=== PATIENT | female | born 1945 | race Two or more races ===

== ENCOUNTER 2021-04-05 20:33 | Inpatient (IN) | payer MEDICAID, OTHER ==
[~2021-04-05] VITALS: Ht 157.5 cm; Wt 64.5 kg
[2021-04-05 21:55] LABS: Basophils # (auto) 0 10 ^3/uL (0-0.2); Basophils % (auto) 0.3 % (0.0-2.0); Eosinophils # (auto) 0 10 ^3/uL (0-0.8); Hematocrit 40.5 % (36.0-46.0); Hemoglobin 13.2 g/dL (12.2-16.2); Lymphocytes # (auto) 1.8 10 ^3/uL (0.4-5.4); Lymphocytes % (auto) 12.6 % (10.0-50.0); Mean Corpuscular Hemoglobin 32.6 pg (28.0-32.0); Mean Corpuscular Hgb Conc. 32.6 g/dL (32.0-36.0); Monocytes # (auto) 1.3 10 ^3/uL (0-1.3); Monocytes % (auto) 9.6 % (0.0-12.0); Neutrophils # (auto) 10.8 10 ^3/uL (1.6-8.6); Neutrophils % (auto) 77.5 % (37.0-80.0); Red Blood Cells 4.05 10^6/uL (4.0-5.20); Red Cell Distribution Width 15.3 % (11.8-14.3)
[2021-04-05 21:56] LABS: Magnesium 3.1 mg/dL (1.6-2.6)
[2021-04-05 22:00] LABS: BUN/Creatinine Ratio 8.2; Bilirubin, Total 0.5 mg/dL (0.2-1.0); Total Protein 8.4 g/dL (6.4-8.2)
[2021-04-05 22:03] LABS: INR 1.05 (0.9-1.15); Partial Thromboplastin Time 31.9 sec (23.6-33.0)
[2021-04-05 22:04] LABS: Potassium 5.6 mmol/L (3.5-5.1)
[2021-04-05] MEDS ORDERED: CALCIUM GLUC 1,000mg/50ml-NS 50 ML IV ONE (22:15)
[2021-04-05] MEDS ORDERED: SODIUM BICARBONATE 8.4% INJ 50ML SYRINGE IV ONE (22:15)
[2021-04-05] MEDS ORDERED: InsuLIN REG 1unit/0.01ml Soln (100units/ml) IV ONE (22:15)
[2021-04-05] MEDS ORDERED: DEXTROSE (50%) 50ML SYRG IV ONE (22:15)
[2021-04-05] MEDS ORDERED: MORPHINE SULFATE 4 MG/ML SYR/VIAL IV PRN (22:30)
[2021-04-05] MEDS ORDERED: DOCUSATE SOD 100 MG CAP PO PRN (22:30)
[2021-04-05] MEDS ORDERED: hydrALAZINE HCL 20 MG/ML VL IV PRN (22:30)
[2021-04-05] MEDS ORDERED: ONDANSETRON HCL 4 MG/2 ML VIAL IV PRN (22:30)
[2021-04-05] MEDS ORDERED: DEXTROSE (50%) 50ML SYRG IV PRN (22:30)
[2021-04-05] MEDS ORDERED: ACETAMINOPHEN 325 MG TAB PO PRN (22:30)
[2021-04-05] MEDS ORDERED: NITROGLYCERIN 0.4 MG SL TAB SL PRN (23:00)
[2021-04-05] MEDS ORDERED: MORPHINE SULFATE INJECTION 2 MG/ML SYRG IV PRN (23:00)
[2021-04-06] MEDS ORDERED: SODIUM CHLOR 0.9% PF (SALINE LOCK) 10ML VIAL/SYR IV SCH ×2 (06:00→22:00)
[2021-04-06] MEDS: ACCU-CHEK COMFORT CURVE STRIP VI SCH (06:47)
[2021-04-06] MEDS: InsuLIN REG 1unit/0.01ml Soln (100units/ml) SC SCH ×2 (06:56→22:16)
[2021-04-06 07:10] LABS: Albumin 2.5 g/dL (3.4-5.0); Calcium 8.7 mg/dL (8.5-10.1); Magnesium 3.3 mg/dL (1.6-2.6); Potassium 5.5 mmol/L (3.5-5.1)
[2021-04-06 07:14] LABS: BUN/Creatinine Ratio 8.1; Bilirubin, Total 0.6 mg/dL (0.2-1.0); Total Protein 7.3 g/dL (6.4-8.2)
[2021-04-06 07:20] LABS: Basophils # (auto) 0 10 ^3/uL (0-0.2); Basophils % (auto) 0.3 % (0.0-2.0); Eosinophils # (auto) 0 10 ^3/uL (0-0.8); Eosinophils % (auto) 0.1 % (0.0-7.0); Hematocrit 36.3 % (36.0-46.0); Hemoglobin 12.3 g/dL (12.2-16.2); Lymphocytes # (auto) 2.9 10 ^3/uL (0.4-5.4); Lymphocytes % (auto) 19.8 % (10.0-50.0); Mean Corpuscular Hemoglobin 33.9 pg (28.0-32.0); Mean Corpuscular Hgb Conc. 33.8 g/dL (32.0-36.0); Mean Corpuscular Volume 100.2 fL (80.0-100.0); Monocytes # (auto) 1.6 10 ^3/uL (0-1.3); Monocytes % (auto) 11.1 % (0.0-12.0); Neutrophils % (auto) 68.7 % (37.0-80.0); Nucleated Red Blood Cells % 0.1 %; Red Blood Cells 3.62 10^6/uL (4.0-5.20); Red Cell Distribution Width 15.2 % (11.8-14.3); White Blood Cell 14.6 10^3/uL (4.4-10.8)
[2021-04-06] MEDS ORDERED: DEXTROSE (50%) 50ML SYRG IV ONE (08:00)
[2021-04-06] MEDS ORDERED: CALCIUM GLUC 1,000mg/50ml-NS 50 ML IV ONE (08:00)
[2021-04-06] MEDS ORDERED: InsuLIN REG 1unit/0.01ml Soln (100units/ml) IV ONE (08:00)
[2021-04-06] MEDS ORDERED: SODIUM ZIRCONIUM CYCL 10 GM PAK PO ONE (08:00)
[2021-04-06] MEDS ORDERED: SODIUM BICARBONATE 8.4% INJ 50ML SYRINGE IV ONE (09:00)
[2021-04-06] MEDS: SEVELAMER 800 MG TAB PO SCH ×2 (09:00→12:00)
[2021-04-06] MEDS: cefTRIAXone 1GM/50ML D5W 50 ML IV SCH (09:20)
[2021-04-06] MEDS ORDERED: HEPARIN SODIUM (PORCINE) 5000 UNITS/ML 1ML VIAL IV ONE (10:00)
[2021-04-06] MEDS: ASPirin 81 mg TAB PO SCH (10:00)
[2021-04-06] MEDS ORDERED: FAMOTIDINE (10MG/ML) 2ML VL IV SCH (10:00)
[2021-04-06] MEDS ORDERED: NITROGLYCERIN 50MG/250ML 250 ML IV SCH (10:00)
[2021-04-06 10:26] LABS: Basophils # (auto) 0.1 10 ^3/uL (0-0.2); Basophils % (auto) 0.5 % (0.0-2.0); Eosinophils # (auto) 0.1 10 ^3/uL (0-0.8); Eosinophils % (auto) 0.4 % (0.0-7.0); Hematocrit 38.8 % (36.0-46.0); Hemoglobin 12.8 g/dL (12.2-16.2); Lymphocytes # (auto) 2.9 10 ^3/uL (0.4-5.4); Lymphocytes % (auto) 17.9 % (10.0-50.0); Mean Corpuscular Hemoglobin 33.3 pg (28.0-32.0); Mean Corpuscular Hgb Conc. 33.1 g/dL (32.0-36.0); Mean Corpuscular Volume 100.7 fL (80.0-100.0); Monocytes # (auto) 1.5 10 ^3/uL (0-1.3); Monocytes % (auto) 9.4 % (0.0-12.0); Neutrophils # (auto) 11.6 10 ^3/uL (1.6-8.6); Neutrophils % (auto) 71.8 % (37.0-80.0); Nucleated Red Blood Cells % 0.4 %; Red Blood Cells 3.85 10^6/uL (4.0-5.20); Red Cell Distribution Width 15.3 % (11.8-14.3); White Blood Cell 16.1 10^3/uL (4.4-10.8)
[2021-04-06] MEDS ORDERED: methylPREDNISolone SOD SUCC 40 MG/ML VL IV ONE (10:30)
[2021-04-06] MEDS ORDERED: FAMOTIDINE (10MG/ML) 2ML VL IV ONE ×3 (10:30→22:00)
[2021-04-06] MEDS ORDERED: diphenhdrAMINE HCL 25 MG CAP PO ONE ×2 (10:30→22:00)
[2021-04-06] MEDS: ZINC SULFATE 220mg CAP or TAB PO SCH (10:57)
[2021-04-06] MEDS: B-COMPLEX W/ C & FOLIC ACID(NEPHROVITE TAB) PO SCH (10:57)
[2021-04-06] MEDS: ASCORBIC ACID 500 MG TAB PO SCH ×2 (10:59→22:21)
[2021-04-06] MEDS: MULTIPLE VITAMIN TAB PO SCH (11:02)
[2021-04-06] MEDS: HEPARIN DRIP/D5W 100UNITS/ML 250 ML IV SCH (11:45)
[2021-04-06] MEDS ORDERED: LIDOCAINE 2%HCL (LOCAL ANESTH.) INJ 20ML MDV ONE (12:52)
[2021-04-06] MEDS ORDERED: IODIXANOL 320MG/ML 100ML BTL IV ONE (12:52)
[2021-04-06] MEDS ORDERED: ANGIOMAX 250 MG VIAL IV ONE (12:56)
[2021-04-06] MEDS ORDERED: HEPARIN SODIUM (PORCINE) 5000 UNITS/ML 1ML VIAL ONE (12:56)
[2021-04-06] MEDS ORDERED: fentaNYL CITRATE 100 MCG/2 ML VL ONE (12:57)
[2021-04-06] MEDS ORDERED: VERAPAMIL 2.5MG/ML INJ 2ML VIAL IV ONE (12:57)
[2021-04-06] MEDS ORDERED: MIDAZOLAM HCL 2MG/2ML 2ml VIAL (1mg/ml) ONE (12:57)
[2021-04-06] MEDS ORDERED: SODIUM CHL 0.9% 0 ML ONE (12:57)
[2021-04-06] MEDS ORDERED: diphenhdrAMINE HCL 50 MG/1 ML VL ONE (13:12)
[2021-04-06] MEDS ORDERED: methylPREDNISolone SOD SUCC 125 MG/2 ML VL ONE (13:12)
[2021-04-06] MEDS ORDERED: AML5T PO (13:36)
[2021-04-06] MEDS ORDERED: ASPI1TAB20 PO (13:38)
[2021-04-06] MEDS ORDERED: MET50T PO (13:40)
[2021-04-06] MEDS ORDERED: CINA30TA2 PO (13:41)
[2021-04-06] MEDS ORDERED: LORA-622 PO (13:41)
[2021-04-06] MEDS ORDERED: GLIP5TAB12 PO (13:41)
[2021-04-06] MEDS ORDERED: SEVE800T10 PO (13:43)
[2021-04-06] MEDS ORDERED: INSU1INJ19 SC (13:43)
[2021-04-06 19:48] LABS: INR 1.11 (0.9-1.15); Partial Thromboplastin Time 56.4 sec (23.6-33.0)
[2021-04-06] MEDS: SODIUM CHLOR 0.9% PF (SALINE LOCK) 10ML VIAL/SYR IV SCH (22:23)
[2021-04-06 23:13] VITALS: BP 138/68
[2021-04-07 02:27] LABS: INR 1.17 (0.9-1.15); Partial Thromboplastin Time 56.7 sec (23.6-33.0)
[2021-04-07 05:30] VITALS: BP 145/66
[2021-04-07] MEDS: SODIUM CHLOR 0.9% PF (SALINE LOCK) 10ML VIAL/SYR IV SCH ×3 (05:35→22:10)
[2021-04-07 05:49] LABS: Basophils # (auto) 0 10 ^3/uL (0-0.2); Basophils % (auto) 0.1 % (0.0-2.0); Eosinophils # (auto) 0 10 ^3/uL (0-0.8); Hematocrit 33.2 % (36.0-46.0); Hemoglobin 11.2 g/dL (12.2-16.2); Lymphocytes # (auto) 1.3 10 ^3/uL (0.4-5.4); Mean Corpuscular Hemoglobin 33.8 pg (28.0-32.0); Mean Corpuscular Hgb Conc. 33.9 g/dL (32.0-36.0); Mean Corpuscular Volume 99.8 fL (80.0-100.0); Monocytes # (auto) 0.8 10 ^3/uL (0-1.3); Monocytes % (auto) 7.3 % (0.0-12.0); Neutrophils # (auto) 8.6 10 ^3/uL (1.6-8.6); Neutrophils % (auto) 80.6 % (37.0-80.0); Red Blood Cells 3.33 10^6/uL (4.0-5.20); Red Cell Distribution Width 15.1 % (11.8-14.3); White Blood Cell 10.6 10^3/uL (4.4-10.8)
[2021-04-07 06:19] LABS: Albumin 2.4 g/dL (3.4-5.0); Bilirubin, Total 0.5 mg/dL (0.2-1.0); Calcium 8.4 mg/dL (8.5-10.1); Magnesium 3.3 mg/dL (1.6-2.6); Phosphorus 2.3 mg/dL (2.5-4.90); Total Protein 7.6 g/dL (6.4-8.2)
[2021-04-07] MEDS: ACCU-CHEK COMFORT CURVE STRIP VI SCH ×6 (07:00→22:15)
[2021-04-07] MEDS ORDERED: SODIUM CHL 0.9% 1000 ML BAG XX ONE (07:00)
[2021-04-07] MEDS: ASCORBIC ACID 500 MG TAB PO SCH ×2 (08:39→22:13)
[2021-04-07] MEDS: SEVELAMER 800 MG TAB PO SCH ×3 (08:39→18:00)
[2021-04-07] MEDS: ZINC SULFATE 220mg CAP or TAB PO SCH (08:39)
[2021-04-07] MEDS: B-COMPLEX W/ C & FOLIC ACID(NEPHROVITE TAB) PO SCH (08:39)
[2021-04-07] MEDS: SODIUM ZIRCONIUM CYCL 10 GM PAK PO SCH ×2 (08:39→14:00)
[2021-04-07] MEDS: MULTIPLE VITAMIN TAB PO SCH (08:40)
[2021-04-07] MEDS: ASPirin 81 mg TAB PO SCH (08:40)
[2021-04-07] MEDS: cefTRIAXone 1GM/50ML D5W 50 ML IV SCH (08:41)
[2021-04-07 08:42] LABS: INR 1.13 (0.9-1.15); Partial Thromboplastin Time 50.1 sec (23.6-33.0)
[2021-04-07 08:43] LABS: Potassium 5.9 mmol/L (3.5-5.1)
[2021-04-07] MEDS: InsuLIN REG 1unit/0.01ml Soln (100units/ml) SC SCH ×4 (08:43→22:14)
[2021-04-07 09:00] VITALS: BP 156/77
[2021-04-07] MEDS: HEPARIN DRIP/D5W 100UNITS/ML 250 ML IV SCH ×3 (10:00→21:26)
[2021-04-07] MEDS ORDERED: NITROGLYCERIN 50MG/250ML 250 ML IV SCH (10:45)
[2021-04-07 13:00] VITALS: BP 156/72
[2021-04-07 16:02] LABS: INR 1.1 (0.9-1.15); Partial Thromboplastin Time 38.2 sec (23.6-33.0)
[2021-04-07 21:29] LABS: INR 1.09 (0.9-1.15); Partial Thromboplastin Time 28.8 sec (23.6-33.0)
[2021-04-07 21:52] VITALS: BP 128/53
[2021-04-07] MEDS ORDERED: HEPARIN SODIUM (PORCINE) 5000 UNITS/ML 1ML VIAL IV ONE (22:00)
[2021-04-07] MEDS ORDERED: HEPARIN DRIP/D5W 100UNITS/ML 250 ML IV SCH (22:00)
[2021-04-07] MEDS: METOPROLOL TARTRATE 25 MG TAB PO SCH (22:12)
[2021-04-07] MEDS: INSULIN LANTUS (GLARGINE) 1 /0.01ml (100units/ml) SC SCH (22:15)
[2021-04-07] MEDS: HYDROcodone-ACET 5/325MG TAB PO PRN (22:19)
[2021-04-08 04:49] VITALS: BP 111/50
[2021-04-08] MEDS: SODIUM CHLOR 0.9% PF (SALINE LOCK) 10ML VIAL/SYR IV SCH ×3 (06:11→22:04)
[2021-04-08] MEDS: InsuLIN REG 1unit/0.01ml Soln (100units/ml) SC SCH ×4 (06:12→22:06)
[2021-04-08] MEDS: ACCU-CHEK COMFORT CURVE STRIP VI SCH ×4 (06:13→22:07)
[2021-04-08 07:18] LABS: Basophils # (auto) 0 10 ^3/uL (0-0.2); Basophils % (auto) 0.2 % (0.0-2.0); Eosinophils # (auto) 0 10 ^3/uL (0-0.8); Eosinophils % (auto) 0.1 % (0.0-7.0); Hematocrit 30.2 % (36.0-46.0); Hemoglobin 10.1 g/dL (12.2-16.2); Lymphocytes # (auto) 3.8 10 ^3/uL (0.4-5.4); Lymphocytes % (auto) 31.1 % (10.0-50.0); Mean Corpuscular Hemoglobin 33.5 pg (28.0-32.0); Mean Corpuscular Hgb Conc. 33.5 g/dL (32.0-36.0); Mean Corpuscular Volume 99.9 fL (80.0-100.0); Monocytes # (auto) 1.5 10 ^3/uL (0-1.3); Monocytes % (auto) 12.7 % (0.0-12.0); Neutrophils # (auto) 6.8 10 ^3/uL (1.6-8.6); Neutrophils % (auto) 55.9 % (37.0-80.0); Nucleated Red Blood Cells % 0.1 %; Red Blood Cells 3.02 10^6/uL (4.0-5.20); Red Cell Distribution Width 15.3 % (11.8-14.3); White Blood Cell 12.1 10^3/uL (4.4-10.8)
[2021-04-08 07:39] LABS: Calcium 8.3 mg/dL (8.5-10.1)
[2021-04-08 07:42] LABS: BUN/Creatinine Ratio 8.8
[2021-04-08 07:49] LABS: INR 1.1 (0.9-1.15)
[2021-04-08 08:02] LABS: Partial Thromboplastin Time 128.7 sec (23.6-33.0)
[2021-04-08 09:00] VITALS: BP 139/68
[2021-04-08] MEDS: HEPARIN DRIP/D5W 100UNITS/ML 250 ML IV SCH ×2 (09:09→16:28)
[2021-04-08] MEDS: ASPirin 81 mg TAB PO SCH (10:07)
[2021-04-08] MEDS: ZINC SULFATE 220mg CAP or TAB PO SCH (10:07)
[2021-04-08] MEDS: METOPROLOL TARTRATE 25 MG TAB PO SCH ×2 (10:11→22:00)
[2021-04-08] MEDS: MULTIPLE VITAMIN TAB PO SCH (10:11)
[2021-04-08] MEDS: B-COMPLEX W/ C & FOLIC ACID(NEPHROVITE TAB) PO SCH (10:11)
[2021-04-08] MEDS: ASCORBIC ACID 500 MG TAB PO SCH ×2 (10:11→22:05)
[2021-04-08] MEDS: NITROGLYCERIN 0.4MG/HR TOPICAL PATCH TD SCH (10:13)
[2021-04-08 13:00] VITALS: BP 137/66
[2021-04-08] MEDS ORDERED: DEXTROSE (50%) 50ML SYRG IV PRN (14:15)
[2021-04-08 15:55] LABS: INR 1.06 (0.9-1.15)
[2021-04-08 17:00] VITALS: BP 127/57
[2021-04-08] MEDS ORDERED: [UNRECOGNIZED DRUG - OTHER] IV NR ×9 (20:00)
[2021-04-08] MEDS ORDERED: FAT EMULSION IV NR ×9 (20:00)
[2021-04-08] MEDS ORDERED: SODIUM PHOSPHATES IV NR ×9 (20:00)
[2021-04-08] MEDS ORDERED: SODIUM CHLORIDE IV NR ×9 (20:00)
[2021-04-08 21:35] VITALS: BP 107/57
[2021-04-08] MEDS: INSULIN LANTUS (GLARGINE) 1 /0.01ml (100units/ml) SC SCH (22:07)
[2021-04-08] MEDS: HYDROcodone-ACET 5/325MG TAB PO PRN (22:08)
[2021-04-08 23:40] LABS: INR 1.06 (0.9-1.15); Partial Thromboplastin Time 60.9 sec (23.6-33.0)
[2021-04-09 04:49] VITALS: BP 124/57
[2021-04-09 06:56] LABS: Basophils # (auto) 0 10 ^3/uL (0-0.2); Basophils % (auto) 0.4 % (0.0-2.0); Eosinophils # (auto) 0.1 10 ^3/uL (0-0.8); Eosinophils % (auto) 1.3 % (0.0-7.0); Hematocrit 28.4 % (36.0-46.0); Hemoglobin 9.7 g/dL (12.2-16.2); Lymphocytes # (auto) 4.1 10 ^3/uL (0.4-5.4); Lymphocytes % (auto) 40.7 % (10.0-50.0); Mean Corpuscular Hemoglobin 34.1 pg (28.0-32.0); Mean Corpuscular Hgb Conc. 34.2 g/dL (32.0-36.0); Mean Corpuscular Volume 99.7 fL (80.0-100.0); Monocytes # (auto) 1.4 10 ^3/uL (0-1.3); Monocytes % (auto) 14.1 % (0.0-12.0); Neutrophils # (auto) 4.4 10 ^3/uL (1.6-8.6); Neutrophils % (auto) 43.5 % (37.0-80.0); Red Blood Cells 2.85 10^6/uL (4.0-5.20); White Blood Cell 10.1 10^3/uL (4.4-10.8)
[2021-04-09 06:57] LABS: Albumin 2.3 g/dL (3.4-5.0); Calcium 7.9 mg/dL (8.5-10.1); Magnesium 2.9 mg/dL (1.6-2.6); Potassium 4.4 mmol/L (3.5-5.1)
[2021-04-09] MEDS: InsuLIN REG 1unit/0.01ml Soln (100units/ml) SC SCH ×2 (07:00→12:26)
[2021-04-09] MEDS ORDERED: SODIUM CHL 0.9% 1000 ML BAG XX ONE (07:00)
[2021-04-09 07:02] LABS: BUN/Creatinine Ratio 9.7; Bilirubin, Total 0.3 mg/dL (0.2-1.0); Phosphorus 4.8 mg/dL (2.5-4.90); Total Protein 7.1 g/dL (6.4-8.2)
[2021-04-09] MEDS: SODIUM CHLOR 0.9% PF (SALINE LOCK) 10ML VIAL/SYR IV SCH ×2 (07:03→14:21)
[2021-04-09] MEDS: ACCU-CHEK COMFORT CURVE STRIP VI SCH ×2 (07:04→12:25)
[2021-04-09 08:49] LABS: INR 1.06 (0.9-1.15)
[2021-04-09 09:00] VITALS: BP 128/67
[2021-04-09 09:24] LABS: Partial Thromboplastin Time 78.6 sec (23.6-33.0)
[2021-04-09] MEDS: HEPARIN DRIP/D5W 100UNITS/ML 250 ML IV SCH (09:33)
[2021-04-09] MEDS: ZINC SULFATE 220mg CAP or TAB PO SCH (10:00)
[2021-04-09] MEDS: B-COMPLEX W/ C & FOLIC ACID(NEPHROVITE TAB) PO SCH (10:00)
[2021-04-09] MEDS: ASPirin 81 mg TAB PO SCH (10:00)
[2021-04-09] MEDS: ASCORBIC ACID 500 MG TAB PO SCH (10:01)
[2021-04-09] MEDS: NITROGLYCERIN 0.4MG/HR TOPICAL PATCH TD SCH (10:01)
[2021-04-09] MEDS: METOPROLOL TARTRATE 25 MG TAB PO SCH (11:02)
[2021-04-09 12:10] LABS: Hepatitis A Ab IgM Negative
[2021-04-09 12:20] LABS: Hepatitis B Surface Antigen Negative (Negative)
[2021-04-09 12:24] LABS: Hepatitis B Core IgM Negative
[2021-04-09 13:57] LABS: Hepatitis C Antibody Negative (Negative)
[2021-04-09] MEDS ORDERED: EPOETIN ALFA-EPBX 10,000 UNIT/1ML VIAL SC ONE (21:00)
== END 2021-04-09 14:15 | disposition short-term general hospital (02) | DRG 191 ==
LOC: EDBD 20:33 → ER 20:36 → TELE 23:00 → TELE-WESTW 04-06 18:27
PROVIDERS: ADMIT Nurse Practitioner Family; ATTEND Internal Medicine
PROC: 4A023N7 Measurement of Cardiac Sampling and Pressure, Left Heart, Percutaneous Approach (ICD-10-PCS; principal; 2021-04-06)
PROC: B211YZZ Fluoroscopy of Multiple Coronary Arteries using Other Contrast (ICD-10-PCS; 2021-04-06)
PROC: B215YZZ Fluoroscopy of Left Heart using Other Contrast (ICD-10-PCS; 2021-04-06)
DX: I25.10 Atherosclerotic heart disease of native coronary artery without angina pectoris (principal); I50.33 Acute on chronic diastolic (congestive) heart failure; N18.6 End stage renal disease; R65.10 Systemic inflammatory response syndrome (SIRS) of non-infectious origin without acute organ dysfunction; E87.1 Hypo-osmolality and hyponatremia; E88.09 Other disorders of plasma-protein metabolism, not elsewhere classified; D63.1 Anemia in chronic kidney disease; E11.22 Type 2 diabetes mellitus with diabetic chronic kidney disease; I13.2 Hypertensive heart and chronic kidney disease with heart failure and with stage 5 chronic kidney disease, or end stage renal disease; D72.829 Elevated white blood cell count, unspecified; E11.65 Type 2 diabetes mellitus with hyperglycemia; E78.5 Hyperlipidemia, unspecified; E87.5 Hyperkalemia; Z20.822 Contact with and (suspected) exposure to COVID-19; J44.9 Chronic obstructive pulmonary disease, unspecified; I16.1 Hypertensive emergency; Z91.041 Radiographic dye allergy status; Z99.2 Dependence on renal dialysis; Z79.4 Long term (current) use of insulin
CPT/HCPCS: 36415; 71045; 80048; 80053; 80061; 80074; 82553; 82962; 83036; 83735; 83880; 84100; 84443; 84484; 85025; 85610; 85730; 87040; 87426; 90935; 93005; 93306; 93458; 96365; 96367; 96368; 96372; 96375; 96376; 99152; 99153; G0378; J0696; J1642; J1815; J2250; J3490; Q9967

== ENCOUNTER 2022-01-28 16:09 | Emergency (ER) | payer MEDICAID ==
[~2022-01-28] VITALS: Ht 152.4 cm; Wt 63.0 kg
[~2022-01-28 16:09] MED LIST: AML5T PO; ASPI1TAB20 PO; CINA30TA2 PO; GLIP5TAB12 PO; INSU1INJ19 SC; LORA-622 PO; MET50T PO; SEVE800T10 PO
[2022-01-28 18:47] LABS: Albumin 3.2 g/dL (3.4-5.0); BUN/Creatinine Ratio 8.7; Calcium 8.6 mg/dL (8.5-10.1); Hematocrit 35.5 % (36.0-46.0); Hemoglobin 11.5 g/dL (12.2-16.2); Mean Corpuscular Hemoglobin 32.1 pg (28.0-32.0); Mean Corpuscular Hgb Conc. 32.3 g/dL (32.0-36.0); Mean Corpuscular Volume 99.4 fL (80.0-100.0); Potassium 4.6 mmol/L (3.5-5.1); Red Blood Cells 3.58 10^6/uL (4.0-5.20); Red Cell Distribution Width 17.5 % (11.8-14.3); White Blood Cell 6.7 10^3/uL (4.4-10.8)
[2022-01-28 18:50] LABS: Bilirubin, Total 0.7 mg/dL (0.2-1.0); Total Protein 8.8 g/dL (6.4-8.2)
[2022-01-28 18:56] LABS: Basophils % (manual) 0 (0.0-2.0); Blast Cells 0; Metamyelocytes % 0; Myelocytes % 0; Promyelocytes % 0; Reactive Lymphocytes 0
[2022-01-28 20:25] VITALS: BP 150/70
[2022-01-28 20:43] LABS: Band Neutrophils % (manual) 4; Eosinophils % (manual) 5 (0-7); Lymphocytes % (manual) 24 (10.0-50.0); Monocytes % (manual) 14 (0-12)
== END 2022-01-28 20:30 | disposition home or self-care (01) ==
LOC: ER 16:09
DX: R60.0 Localized edema (principal); I12.9 Hypertensive chronic kidney disease with stage 1 through stage 4 chronic kidney disease, or unspecified chronic kidney disease; E11.22 Type 2 diabetes mellitus with diabetic chronic kidney disease; N18.9 Chronic kidney disease, unspecified; Z99.2 Dependence on renal dialysis; Z79.4 Long term (current) use of insulin; Z79.899 Other long term (current) drug therapy; Z88.8 Allergy status to other drugs, medicaments and biological substances
CPT/HCPCS: 36415; 80053; 85007; 85027; 93005

== ENCOUNTER 2022-02-27 10:16 | Emergency (ER) | payer MEDICAID ==
[~2022-02-27] VITALS: Ht 162.6 cm; Wt 65.0 kg
[2022-02-27 12:44] LABS: Basophils # (auto) 0.1 10 ^3/uL (0-0.2); Basophils % (auto) 0.9 % (0.0-2.0); Hematocrit 27.8 % (36.0-46.0); Lymphocytes # (auto) 1.7 10 ^3/uL (0.4-5.4); Mean Corpuscular Volume 101.8 fL (80.0-100.0); Neutrophils # (auto) 5.4 10 ^3/uL (1.6-8.6); Red Blood Cells 2.73 10^6/uL (4.0-5.20)
[2022-02-27 12:45] LABS: Eosinophils # (auto) 0.3 10 ^3/uL (0-0.8); Eosinophils % (auto) 3.3 % (0.0-7.0); Lymphocytes % (auto) 20.4 % (10.0-50.0); Mean Corpuscular Hemoglobin 33.1 pg (28.0-32.0); Mean Corpuscular Hgb Conc. 32.5 g/dL (32.0-36.0); Monocytes % (auto) 12.1 % (0.0-12.0); Neutrophils % (auto) 63.3 % (37.0-80.0); White Blood Cell 8.6 10^3/uL (4.4-10.8)
[2022-02-27 13:05] LABS: Potassium 4.9 mmol/L (3.5-5.1)
[2022-02-27 13:13] LABS: Albumin 2.7 g/dL (3.4-5.0); BUN/Creatinine Ratio 10.1; Bilirubin, Total 0.9 mg/dL (0.2-1.0); Calcium 8.2 mg/dL (8.5-10.1); Total Protein 7.3 g/dL (6.4-8.2)
[2022-02-27 13:17] LABS: INR 1.06 (0.9-1.15)
[2022-02-27 14:04] VITALS: BP 172/68
== END 2022-02-27 14:58 | disposition home or self-care (01) ==
LOC: EDBD 10:16 → ER 10:31
DX: T82.838A Hemorrhage due to vascular prosthetic devices, implants and grafts, initial encounter (principal); E11.9 Type 2 diabetes mellitus without complications; I10 Essential (primary) hypertension; Z88.6 Allergy status to analgesic agent
CPT/HCPCS: 36415; 80053; 85025; 85610; 86850; 86900; 86901

== ENCOUNTER 2022-03-09 12:58 | Inpatient (IN) | payer MEDICAID ==
[~2022-03-09] VITALS: Ht 152.4 cm; Wt 62.8 kg
[2022-03-09 14:40] LABS: Basophils # (auto) 0.1 10 ^3/uL (0-0.2); Eosinophils # (auto) 0.1 10 ^3/uL (0-0.8); Lymphocytes # (auto) 1.3 10 ^3/uL (0.4-5.4); Mean Corpuscular Hemoglobin 33.3 pg (28.0-32.0); Monocytes # (auto) 1.5 10 ^3/uL (0-1.3); White Blood Cell 9.3 10^3/uL (4.4-10.8)
[2022-03-09 14:41] LABS: Basophils % (auto) 0.7 % (0.0-2.0); Hematocrit 21.7 % (36.0-46.0); Mean Corpuscular Volume 104.1 fL (80.0-100.0); Monocytes % (auto) 15.7 % (0.0-12.0); Neutrophils # (auto) 6.4 10 ^3/uL (1.6-8.6); Neutrophils % (auto) 68.6 % (37.0-80.0); Nucleated Red Blood Cells % 0.8 %; Red Blood Cells 2.08 10^6/uL (4.0-5.20); Red Cell Distribution Width 19.5 % (11.8-14.3)
[2022-03-09 14:56] LABS: Hemoglobin 6.9 g/dL (12.2-16.2)
[2022-03-09] MEDS ORDERED: PANTOPRAZOLE 40mg/50ML NS AE 50 ML IV ONE (15:00)
[2022-03-09] MEDS ORDERED: ONDANSETRON HCL 4 MG/2 ML VIAL IV ONE (15:00)
[2022-03-09] MEDS ORDERED: FAMOTIDINE (10MG/ML) 2ML VL IV ONE (15:00)
[2022-03-09] MEDS ORDERED: LIDOCAINE VISCOUS 2% 15ML UD PO ONE (15:00)
[2022-03-09] MEDS ORDERED: ALUM & MAG HYDROX-SIMETH LIQ(MAALOX) 30 ML PO ONE (15:00)
[2022-03-09] MEDS ORDERED: PANTOPRAZOLE 80 MG in SODIUM CHL 0.9% 100 ML IV ONE ×2 (15:00→17:15)
[2022-03-09 15:02] LABS: Albumin 2.3 g/dL (3.4-5.0); BUN/Creatinine Ratio 11.6; Calcium 8.2 mg/dL (8.5-10.1)
[2022-03-09 15:05] LABS: Bilirubin, Total 0.9 mg/dL (0.2-1.0); Total Protein 6.3 g/dL (6.4-8.2)
[2022-03-09 15:29] LABS: Potassium 5.6 mmol/L (3.5-5.1)
[2022-03-09] MEDS ORDERED: DEXTROSE (50%) 50ML SYRG IV ONE (16:00)
[2022-03-09] MEDS ORDERED: CALCIUM GLUC 1,000mg/50ml-NS 50 ML IV ONE (16:00)
[2022-03-09] MEDS ORDERED: InsuLIN REG 1unit/0.01ml Soln (100units/ml) IV ONE (16:00)
[2022-03-09] MEDS ORDERED: MORPHINE SULFATE INJ 2 MG/ml SYRG IV PRN (17:00)
[2022-03-09] MEDS ORDERED: NITROGLYCERIN 0.4 MG SL TAB SL PRN (17:00)
[2022-03-09] MEDS ORDERED: SODIUM CHLORIDE 0.9% 500 ML IV ONE (17:15)
[2022-03-09] MEDS ORDERED: metroNIDAZOLE 500MG/100ML 100 ML IV ONE (17:15)
[2022-03-09] MEDS ORDERED: SODIUM CHLORIDE 0.9% 1,000 ML IV ONE (18:00)
[2022-03-09 18:09] LABS: Cholesterol 100 mg/dL (< 200)
[2022-03-09 18:12] LABS: HDL Cholesterol 54 mg/dL (40-59); LDL Cholesterol 46 mg/dL (< 100); Triglycerides 37 mg/dL (< 150)
[2022-03-09 18:31] LABS: INR 1.19 (0.9-1.15); Partial Thromboplastin Time 30.1 sec (24.6-33.4)
[2022-03-09] MEDS: cefTRIAXone 1GM/50ML D5W 50 ML IV SCH (18:31)
[2022-03-10] VITALS (28 sets, daily range): BP systolic 110–169; BP diastolic 44–69
[2022-03-10] MEDS: PANTOPRAZOLE 40mg/50ML NS AE 50 ML IV SCH ×4 (00:30→18:37)
[2022-03-10 01:14] LABS: Hematocrit 15.8 % (36.0-46.0)
[2022-03-10 01:17] LABS: Hemoglobin 5.3 g/dL (12.2-16.2)
[2022-03-10 06:04] LABS: Basophils # (auto) 0.1 10 ^3/uL (0-0.2); Basophils % (auto) 0.7 % (0.0-2.0); Calcium 8.2 mg/dL (8.5-10.1); Lymphocytes # (auto) 4.2 10 ^3/uL (0.4-5.4); Nucleated Red Blood Cells % 0.4 %; Potassium 5.3 mmol/L (3.5-5.1); White Blood Cell 10.8 10^3/uL (4.4-10.8)
[2022-03-10 06:06] LABS: Eosinophils # (auto) 0.2 10 ^3/uL (0-0.8); Eosinophils % (auto) 2.2 % (0.0-7.0); Hematocrit 20.5 % (36.0-46.0); Lymphocytes % (auto) 38.8 % (10.0-50.0); Mean Corpuscular Hemoglobin 33.4 pg (28.0-32.0); Mean Corpuscular Hgb Conc. 33.6 g/dL (32.0-36.0); Mean Corpuscular Volume 99.3 fL (80.0-100.0); Monocytes # (auto) 1.4 10 ^3/uL (0-1.3); Neutrophils # (auto) 4.9 10 ^3/uL (1.6-8.6); Neutrophils % (auto) 45.3 % (37.0-80.0); Red Blood Cells 2.06 10^6/uL (4.0-5.20)
[2022-03-10 06:07] LABS: BUN/Creatinine Ratio 14.4; Bilirubin, Total 0.6 mg/dL (0.2-1.0); Total Protein 5.4 g/dL (6.4-8.2)
[2022-03-10] MEDS: metroNIDAZOLE 500MG/100ML 100 ML IV SCH ×3 (06:08→22:02)
[2022-03-10 06:25] LABS: Hemoglobin 6.9 g/dL (12.2-16.2)
[2022-03-10 06:26] LABS: Red Cell Distribution Width 20.1 % (11.8-14.3)
[2022-03-10] MEDS ORDERED: DEXTROSE 50% SYRINGE 50 ML IV ONE (06:32)
[2022-03-10] MEDS ORDERED: DEXTROSE (50%) 50ML SYRG IV ONE (06:45)
[2022-03-10] MEDS: cefTRIAXone 1GM/50ML D5W 50 ML IV SCH (09:12)
[2022-03-10] MEDS ORDERED: VANCOMYCIN PER PHARMACY 0 MG IV SCH (10:15)
[2022-03-10] MEDS ORDERED: SODIUM CHL 0.9% 1000 ML BAG XX ONE (10:30)
[2022-03-10] MEDS ORDERED: VANCOMYCIN 1GM/250ML 250 ML IV ONE ×2 (12:00→17:00)
[2022-03-10 17:01] LABS: Hematocrit 25.1 % (36.0-46.0); Hemoglobin 8.4 g/dL (12.2-16.2)
[2022-03-10] MEDS ORDERED: EPOETIN ALFA-EPBX 10,000 UNIT/1ML VIAL SC ONE (21:00)
[2022-03-11] VITALS (19 sets, daily range): BP systolic 128–172; BP diastolic 33–71
[2022-03-11 05:31] LABS: Potassium 4.3 mmol/L (3.5-5.1)
[2022-03-11] MEDS: metroNIDAZOLE 500MG/100ML 100 ML IV SCH ×3 (05:42→22:15)
[2022-03-11] MEDS: PANTOPRAZOLE 40mg/50ML NS AE 50 ML IV SCH ×6 (05:42→23:39)
[2022-03-11 05:45] LABS: Albumin 2.3 g/dL (3.4-5.0); BUN/Creatinine Ratio 9.5; Bilirubin, Total 0.7 mg/dL (0.2-1.0); Calcium 7.9 mg/dL (8.5-10.1); Total Protein 6.1 g/dL (6.4-8.2)
[2022-03-11 08:37] LABS: Basophils # (auto) 0.1 10 ^3/uL (0-0.2); Basophils % (auto) 0.9 % (0.0-2.0); Eosinophils # (auto) 0.4 10 ^3/uL (0-0.8); Hematocrit 27.4 % (36.0-46.0); Hemoglobin 9.1 g/dL (12.2-16.2); Lymphocytes # (auto) 1.2 10 ^3/uL (0.4-5.4); Lymphocytes % (auto) 13.9 % (10.0-50.0); Mean Corpuscular Hemoglobin 33.6 pg (28.0-32.0); Mean Corpuscular Hgb Conc. 33.2 g/dL (32.0-36.0); Monocytes # (auto) 1.3 10 ^3/uL (0-1.3); Monocytes % (auto) 15.2 % (0.0-12.0); Neutrophils # (auto) 5.6 10 ^3/uL (1.6-8.6); Nucleated Red Blood Cells % 0.2 %; Red Blood Cells 2.71 10^6/uL (4.0-5.20); Red Cell Distribution Width 19.6 % (11.8-14.3); White Blood Cell 8.6 10^3/uL (4.4-10.8)
[2022-03-11] MEDS: cefTRIAXone 1GM/50ML D5W 50 ML IV SCH (08:41)
[2022-03-11] MEDS ORDERED: DEXTROSE (50%) 50ML SYRG IV PRN (20:15)
[2022-03-11] MEDS: ACCU-CHEK COMFORT CURVE STRIP VI SCH (22:15)
[2022-03-11] MEDS: InsuLIN REG 1unit/0.01ml Soln (100units/ml) SC SCH (22:15)
[2022-03-12 05:10] VITALS: BP 138/59
[2022-03-12] MEDS: metroNIDAZOLE 500MG/100ML 100 ML IV SCH (05:23)
[2022-03-12] MEDS: PANTOPRAZOLE 40mg/50ML NS AE 50 ML IV SCH ×4 (05:23→23:16)
[2022-03-12] MEDS: ACCU-CHEK COMFORT CURVE STRIP VI SCH ×4 (06:28→23:17)
[2022-03-12] MEDS: InsuLIN REG 1unit/0.01ml Soln (100units/ml) SC SCH ×4 (06:28→22:00)
[2022-03-12 09:00] VITALS: BP 167/65
[2022-03-12] MEDS ORDERED: MIDAZOLAM HCL 5 MG/ML-1ML VIAL ONE (10:56)
[2022-03-12] MEDS ORDERED: diphenhdrAMINE HCL 50 MG/1 ML VL ONE (10:56)
[2022-03-12] MEDS ORDERED: fentaNYL CITRATE 100 MCG/2 ML VL ONE (10:57)
[2022-03-12] MEDS ORDERED: LIDOCAINE VISCOUS 2% 15ML UD ONE (10:58)
[2022-03-12] MEDS: cefTRIAXone 1GM/50ML D5W 50 ML IV SCH (11:17)
[2022-03-12] MEDS ORDERED: SODIUM CHL 0.9% 1000 ML BAG XX ONE (12:30)
[2022-03-12 13:00] VITALS: BP 179/81
[2022-03-12 16:55] VITALS: BP 169/66
[2022-03-12] MEDS ORDERED: VANCOMYCIN 1GM/250ML 250 ML IV ONE ×2 (18:00→23:15)
[2022-03-12] MEDS ORDERED: EPOETIN ALFA-EPBX 10,000 UNIT/1ML VIAL SC ONE (21:00)
[2022-03-12 22:00] VITALS: BP 176/80
[2022-03-13] MEDS: PANTOPRAZOLE 40mg/50ML NS AE 50 ML IV SCH ×3 (01:15→06:15)
[2022-03-13] MEDS: hydrALAZINE HCL 20 MG/ML VL IV PRN ×2 (05:06→22:45)
[2022-03-13 05:12] VITALS: BP 165/73
[2022-03-13 05:50] LABS: Basophils # (auto) 0.1 10 ^3/uL (0-0.2); Basophils % (auto) 1.4 % (0.0-2.0); Eosinophils # (auto) 0.2 10 ^3/uL (0-0.8); Eosinophils % (auto) 3.8 % (0.0-7.0); Hematocrit 24.7 % (36.0-46.0); Hemoglobin 8.2 g/dL (12.2-16.2); Lymphocytes % (auto) 17.1 % (10.0-50.0); Mean Corpuscular Hemoglobin 33.6 pg (28.0-32.0); Mean Corpuscular Hgb Conc. 33.3 g/dL (32.0-36.0); Mean Corpuscular Volume 101.1 fL (80.0-100.0); Monocytes % (auto) 15.9 % (0.0-12.0); Neutrophils # (auto) 3.7 10 ^3/uL (1.6-8.6); Neutrophils % (auto) 61.8 % (37.0-80.0); Nucleated Red Blood Cells % 0.1 %; Red Blood Cells 2.44 10^6/uL (4.0-5.20); Red Cell Distribution Width 19.4 % (11.8-14.3)
[2022-03-13 06:18] LABS: Calcium 7.5 mg/dL (8.5-10.1); Potassium 3.6 mmol/L (3.5-5.1)
[2022-03-13 06:20] LABS: BUN/Creatinine Ratio 7.3
[2022-03-13] MEDS: ACCU-CHEK COMFORT CURVE STRIP VI SCH ×4 (06:22→22:45)
[2022-03-13] MEDS: InsuLIN REG 1unit/0.01ml Soln (100units/ml) SC SCH ×4 (06:28→22:49)
[2022-03-13] MEDS ORDERED: SODIUM CHLORIDE LOCK 10 ML ONE (07:47)
[2022-03-13] MEDS ORDERED: diphenhdrAMINE HCL 50 MG/1 ML VL ONE (07:48)
[2022-03-13] MEDS ORDERED: fentaNYL CITRATE 100 MCG/2 ML VL ONE (07:48)
[2022-03-13] MEDS ORDERED: MIDAZOLAM HCL 5 MG/ML-1ML VIAL ONE (07:48)
[2022-03-13] MEDS: cefTRIAXone 1GM/50ML D5W 50 ML IV SCH (08:40)
[2022-03-13 09:00] VITALS: BP 147/61
[2022-03-13] MEDS: PANTOPRAZOLE 40 MG/10 ML VIAL INJ IV SCH ×2 (11:09→22:44)
[2022-03-13 13:00] VITALS: BP 155/63
[2022-03-13] MEDS ORDERED: LIDOCAINE VISCOUS 2% 15ML UD ONE (13:35)
[2022-03-13 17:05] VITALS: BP 154/66
[2022-03-13] MEDS: SUCRALFATE 1 GM/10 ML ORAL SUSP PO SCH ×2 (17:28→22:45)
[2022-03-13 22:00] VITALS: BP 160/61
[2022-03-14 05:00] VITALS: BP 121/54
[2022-03-14 06:06] LABS: Hematocrit 23.6 % (36.0-46.0); Monocytes # (auto) 1.1 10 ^3/uL (0-1.3); Neutrophils # (auto) 4.6 10 ^3/uL (1.6-8.6); Red Blood Cells 2.33 10^6/uL (4.0-5.20)
[2022-03-14 06:13] LABS: Basophils # (auto) 0 10 ^3/uL (0-0.2); Basophils % (auto) 0.6 % (0.0-2.0); Eosinophils # (auto) 0.1 10 ^3/uL (0-0.8); Eosinophils % (auto) 2.1 % (0.0-7.0); Lymphocytes # (auto) 1.2 10 ^3/uL (0.4-5.4); Mean Corpuscular Hemoglobin 34.6 pg (28.0-32.0); Mean Corpuscular Hgb Conc. 34.1 g/dL (32.0-36.0); Mean Corpuscular Volume 101.4 fL (80.0-100.0); Monocytes % (auto) 15.4 % (0.0-12.0); Neutrophils % (auto) 64.9 % (37.0-80.0); Nucleated Red Blood Cells % 0.1 %; Red Cell Distribution Width 19.6 % (11.8-14.3); White Blood Cell 7.1 10^3/uL (4.4-10.8)
[2022-03-14 06:25] LABS: Potassium 4.1 mmol/L (3.5-5.1)
[2022-03-14 06:33] LABS: BUN/Creatinine Ratio 6.6; Calcium 7.6 mg/dL (8.5-10.1)
[2022-03-14] MEDS: ACCU-CHEK COMFORT CURVE STRIP VI SCH ×4 (06:48→22:01)
[2022-03-14] MEDS: SUCRALFATE 1 GM/10 ML ORAL SUSP PO SCH ×4 (06:48→22:01)
[2022-03-14] MEDS: InsuLIN REG 1unit/0.01ml Soln (100units/ml) SC SCH ×4 (06:48→22:01)
[2022-03-14 09:00] VITALS: BP 148/63
[2022-03-14] MEDS: PANTOPRAZOLE 40 MG/10 ML VIAL INJ IV SCH ×2 (09:19→22:01)
[2022-03-14] MEDS: cefTRIAXone 1GM/50ML D5W 50 ML IV SCH (09:19)
[2022-03-14 12:58] VITALS: BP 149/63
[2022-03-14 16:54] VITALS: BP 163/70
[2022-03-14] MEDS: hydrALAZINE HCL 20 MG/ML VL IV PRN (16:56)
[2022-03-14 18:30] VITALS: BP 145/68
[2022-03-14 21:13] VITALS: BP 151/65
[2022-03-15 05:34] VITALS: BP 126/49
[2022-03-15 06:33] LABS: Hematocrit 25.6 % (36.0-46.0); Hemoglobin 8.5 g/dL (12.2-16.2)
[2022-03-15] MEDS: InsuLIN REG 1unit/0.01ml Soln (100units/ml) SC SCH ×3 (06:39→17:00)
[2022-03-15] MEDS: SUCRALFATE 1 GM/10 ML ORAL SUSP PO SCH ×3 (06:39→18:05)
[2022-03-15] MEDS: ACCU-CHEK COMFORT CURVE STRIP VI SCH ×3 (06:39→18:05)
[2022-03-15 06:54] LABS: % Iron Saturation 30.8 % (15-50)
[2022-03-15 07:00] LABS: Albumin 2.4 g/dL (3.4-5.0); BUN/Creatinine Ratio 6.6; Calcium 7.9 mg/dL (8.5-10.1); Phosphorus 3.5 mg/dL (2.5-4.90); Potassium 4.4 mmol/L (3.5-5.1)
[2022-03-15] MEDS ORDERED: SODIUM CHL 0.9% 1000 ML BAG XX ONE (07:00)
[2022-03-15] MEDS: PANTOPRAZOLE 40 MG/10 ML VIAL INJ IV SCH (08:59)
[2022-03-15] MEDS: cefTRIAXone 1GM/50ML D5W 50 ML IV SCH (08:59)
[2022-03-15 09:00] VITALS: BP 159/60
[2022-03-15] MEDS ORDERED: SUCR1TAB22 PO (10:49)
[2022-03-15] MEDS ORDERED: PANT40TA2 PO (10:49)
[2022-03-15 13:00] VITALS: BP 177/81
[2022-03-15 16:52] VITALS: BP 177/63
[2022-03-15] MEDS: hydrALAZINE HCL 20 MG/ML VL IV PRN (17:59)
[2022-03-15 19:00] VITALS: BP 150/68
[2022-03-15] MEDS ORDERED: EPOETIN ALFA-EPBX 4,000 UNIT/ML VIAL SC ONE (21:00)
== END 2022-03-15 19:30 | disposition home or self-care (01) | DRG 241 ==
LOC: EDBD 12:58 → ER 12:58 → TELE 17:04 → DOU IN ICU 22:22 → CENTRAL 03-11 18:41
PROVIDERS: ADMIT Registered Nurse; ATTEND Internal Medicine
PROC: 05HC33Z Insertion of Infusion Device into Left Basilic Vein, Percutaneous Approach (ICD-10-PCS; principal; 2022-03-10)
PROC: B54NZZA Ultrasonography of Left Upper Extremity Veins, Guidance (ICD-10-PCS; 2022-03-10)
PROC: 30233N1 Transfusion of Nonautologous Red Blood Cells into Peripheral Vein, Percutaneous Approach (ICD-10-PCS; 2022-03-10)
PROC: 5A1D70Z Performance of Urinary Filtration, Intermittent, Less than 6 Hours Per Day (ICD-10-PCS; 2022-03-10)
PROC: 5A1D70Z Performance of Urinary Filtration, Intermittent, Less than 6 Hours Per Day (ICD-10-PCS; 2022-03-12)
PROC: 0DB98ZX Excision of Duodenum, Via Natural or Artificial Opening Endoscopic, Diagnostic (ICD-10-PCS; 2022-03-13)
PROC: 0DB68ZX Excision of Stomach, Via Natural or Artificial Opening Endoscopic, Diagnostic (ICD-10-PCS; 2022-03-13)
PROC: 0DB48ZX Excision of Esophagogastric Junction, Via Natural or Artificial Opening Endoscopic, Diagnostic (ICD-10-PCS; 2022-03-13)
PROC: 5A1D70Z Performance of Urinary Filtration, Intermittent, Less than 6 Hours Per Day (ICD-10-PCS; 2022-03-15)
DX: K29.71 Gastritis, unspecified, with bleeding (principal); D69.6 Thrombocytopenia, unspecified; E11.649 Type 2 diabetes mellitus with hypoglycemia without coma; I21.A1 Myocardial infarction type 2; E44.0 Moderate protein-calorie malnutrition; I13.2 Hypertensive heart and chronic kidney disease with heart failure and with stage 5 chronic kidney disease, or end stage renal disease; D62 Acute posthemorrhagic anemia; E88.09 Other disorders of plasma-protein metabolism, not elsewhere classified; N18.6 End stage renal disease; J91.8 Pleural effusion in other conditions classified elsewhere; Z20.822 Contact with and (suspected) exposure to COVID-19; E11.22 Type 2 diabetes mellitus with diabetic chronic kidney disease; Z99.2 Dependence on renal dialysis; K80.20 Calculus of gallbladder without cholecystitis without obstruction; K44.9 Diaphragmatic hernia without obstruction or gangrene; E87.5 Hyperkalemia; I25.10 Atherosclerotic heart disease of native coronary artery without angina pectoris; I50.42 Chronic combined systolic (congestive) and diastolic (congestive) heart failure; K22.10 Ulcer of esophagus without bleeding; K29.80 Duodenitis without bleeding; K29.90 Gastroduodenitis, unspecified, without bleeding; E11.40 Type 2 diabetes mellitus with diabetic neuropathy, unspecified; E78.5 Hyperlipidemia, unspecified; K21.00 Gastro-esophageal reflux disease with esophagitis, without bleeding; Z68.27 Body mass index [BMI] 27.0-27.9, adult; Z88.8 Allergy status to other drugs, medicaments and biological substances; Z95.1 Presence of aortocoronary bypass graft
CPT/HCPCS: 36415; 43239; 71045; 74176; 76604; 80048; 80053; 80061; 80069; 80202; 82728; 82962; 83036; 83540; 83550; 83605; 83690; 84132; 84484; 85014; 85018; 85025; 85610; 85730; 86850; 86900; 86901; 86920; 87040; 87077; 87081; 87186; 90935; 93005; 93306; 96365; 96375; 99291; C9113; G0378; J0696; J1642; J1815; J2250; J2405; J3490

== ENCOUNTER 2022-11-08 20:26 | Inpatient (IN) | payer MEDICAID ==
[~2022-11-08] VITALS: Ht 160 cm; Wt 49.6 kg
[~2022-11-08 20:26] MED LIST changes: +PANT40TA2 PO; +SUCR1TAB22 PO
[2022-11-08] MEDS ORDERED: ACCU-CHEK COMFORT CURVE STRIP VI ONE (21:00)
[2022-11-08] MEDS ORDERED: VANCOMYCIN 1GM/250ML 250 ML IV ONE (21:15)
[2022-11-08] MEDS ORDERED: cefTRIAXone 1GM/50ML D5W 50 ML IV ONE (21:15)
[2022-11-08 21:22] LABS: Basophils # (auto) 0 10 ^3/uL (0-0.2); Eosinophils # (auto) 0 10 ^3/uL (0-0.8); Eosinophils % (auto) 0.1 % (0.0-7.0); Hematocrit 32.2 % (36.0-46.0); Lymphocytes # (auto) 0.4 10 ^3/uL (0.4-5.4); Monocytes # (auto) 0.3 10 ^3/uL (0-1.3); Nucleated Red Blood Cells % 0.1 %; Red Blood Cells 3.14 10^6/uL (4.0-5.20)
[2022-11-08 21:23] LABS: Basophils % (auto) 0.4 % (0.0-2.0); Hemoglobin 10.5 g/dL (12.2-16.2); Lymphocytes % (auto) 4.6 % (10.0-50.0); Mean Corpuscular Hemoglobin 33.6 pg (28.0-32.0); Mean Corpuscular Hgb Conc. 32.8 g/dL (32.0-36.0); Mean Corpuscular Volume 102.5 fL (80.0-100.0); Neutrophils # (auto) 8.6 10 ^3/uL (1.6-8.6); Neutrophils % (auto) 91.9 % (37.0-80.0); Red Cell Distribution Width 19.5 % (11.8-14.3); White Blood Cell 9.3 10^3/uL (4.4-10.8)
[2022-11-08 21:58] LABS: Albumin 3.3 g/dL (3.4-5.0); Calcium 9.8 mg/dL (8.5-10.1); Potassium 3.6 mmol/L (3.5-5.1)
[2022-11-08] MEDS ORDERED: ACETAMINOPHEN 500 MG TAB PO ONE (22:00)
[2022-11-08 22:02] LABS: BUN/Creatinine Ratio 8.4 (10.0-20.0); Bilirubin, Total 1.8 mg/dL (0.2-1.0); Lactic Acid w/Reflex 2.4 mmol/L (0.4-2.0); Total Protein 9.9 g/dL (6.4-8.2)
[2022-11-09] MEDS ORDERED: AMPICILLIN INJ 1 GM in SODIUM CHL 0.9% 100 ML IV ONE (00:15)
[2022-11-09] MEDS ORDERED: AMPICILLIN SOD 1 GM VL ONE (01:21)
[2022-11-09] MEDS ORDERED: SODIUM CHLORIDE 0.9% 500 ML IV ONE (02:00)
[2022-11-09] MEDS ORDERED: DEXTROSE (50%) 50ML SYRG IV PRN (04:15)
[2022-11-09] MEDS ORDERED: ACETAMINOPHEN 325 MG TAB PO PRN (04:15)
[2022-11-09] MEDS ORDERED: ONDANSETRON HCL 4 MG/2 ML VIAL IV PRN (04:15)
[2022-11-09] MEDS: InsuLIN REG 1unit/0.01ml Soln (100units/ml) SC SCH ×4 (07:03→22:18)
[2022-11-09] MEDS: ACCU-CHEK COMFORT CURVE STRIP VI SCH ×4 (07:03→21:39)
[2022-11-09] MEDS: SEVELAMER 800 MG TAB PO SCH ×3 (08:10→22:17)
[2022-11-09] MEDS: amLODIPine BESYLATE 5 MG TAB PO SCH (09:54)
[2022-11-09] MEDS: METOPROLOL SUCCINATE XL 50 MG TAB PO SCH (09:55)
[2022-11-09] MEDS: CLOPIDOGREL BISULFATE 75 MG TAB PO SCH (09:55)
[2022-11-09] MEDS: PANTOPRAZOLE 40 MG TAB PO SCH (09:55)
[2022-11-09] MEDS ORDERED: VANCOMYCIN PER PHARMACY 0 MG IV SCH (12:00)
[2022-11-09] MEDS ORDERED: VANCOMYCIN 750mg/250ml 250 ML IV ONE (14:00)
[2022-11-09 20:00] VITALS: BP 128/57
[2022-11-09] MEDS: cefTRIAXone 1GM/50ML D5W 50 ML IV SCH (21:39)
[2022-11-09 21:50] VITALS: BP 128/57
[2022-11-10 05:00] VITALS: BP 124/56
[2022-11-10] MEDS: ACCU-CHEK COMFORT CURVE STRIP VI SCH ×4 (06:19→21:36)
[2022-11-10] MEDS: InsuLIN REG 1unit/0.01ml Soln (100units/ml) SC SCH ×4 (06:20→21:37)
[2022-11-10] MEDS ORDERED: SODIUM CHL 0.9% 1000 ML BAG XX ONE (07:00)
[2022-11-10 07:02] LABS: Hematocrit 28.8 % (36.0-46.0); Hemoglobin 9.5 g/dL (12.2-16.2); Mean Corpuscular Hemoglobin 34.3 pg (28.0-32.0); Mean Corpuscular Hgb Conc. 32.8 g/dL (32.0-36.0); Mean Corpuscular Volume 104.5 fL (80.0-100.0); Red Blood Cells 2.76 10^6/uL (4.0-5.20)
[2022-11-10 07:05] LABS: Basophils % (manual) 0 (0.0-2.0); Blast Cells 0; Metamyelocytes % 0; Myelocytes % 0; Promyelocytes % 0; Reactive Lymphocytes 0
[2022-11-10 07:34] LABS: BUN/Creatinine Ratio 10.3 (10.0-20.0); Calcium 8.9 mg/dL (8.5-10.1); Potassium 4.1 mmol/L (3.5-5.1)
[2022-11-10 07:57] LABS: Band Neutrophils % (manual) 5; Eosinophils % (manual) 3 (0-7); Lymphocytes % (manual) 11 (10.0-50.0); Monocytes % (manual) 18 (0-12)
[2022-11-10 09:00] VITALS: BP 137/63
[2022-11-10] MEDS: CLOPIDOGREL BISULFATE 75 MG TAB PO SCH (09:19)
[2022-11-10] MEDS: amLODIPine BESYLATE 5 MG TAB PO SCH (09:19)
[2022-11-10] MEDS: SEVELAMER 800 MG TAB PO SCH ×3 (09:19→17:25)
[2022-11-10] MEDS: PANTOPRAZOLE 40 MG TAB PO SCH (09:19)
[2022-11-10] MEDS: METOPROLOL SUCCINATE XL 50 MG TAB PO SCH (09:20)
[2022-11-10 13:00] VITALS: BP 149/68
[2022-11-10 16:56] VITALS: BP 138/55
[2022-11-10] MEDS: cefTRIAXone 1GM/50ML D5W 50 ML IV SCH (20:52)
[2022-11-10] MEDS ORDERED: EPOETIN ALFA-EPBX 4,000 UNIT/ML VIAL SC ONE (21:00)
[2022-11-10 22:00] VITALS: BP 144/63
[2022-11-10] MEDS ORDERED: MELATONIN 5 MG TAB PO PRN (22:15)
[2022-11-11] MEDS: diphenhdrAMINE HCL 50 MG/1 ML VL IV PRN (01:21)
[2022-11-11 05:00] VITALS: BP 148/67
[2022-11-11] MEDS: ACCU-CHEK COMFORT CURVE STRIP VI SCH ×4 (06:19→21:50)
[2022-11-11] MEDS: InsuLIN REG 1unit/0.01ml Soln (100units/ml) SC SCH ×4 (06:20→21:52)
[2022-11-11 06:45] LABS: INR 1.04 (0.9-1.15); Partial Thromboplastin Time 27.3 sec (24.6-33.4)
[2022-11-11] MEDS: SEVELAMER 800 MG TAB PO SCH ×3 (08:09→17:16)
[2022-11-11 09:00] VITALS: BP 103/55
[2022-11-11] MEDS: amLODIPine BESYLATE 5 MG TAB PO SCH (09:15)
[2022-11-11] MEDS: METOPROLOL SUCCINATE XL 50 MG TAB PO SCH (09:15)
[2022-11-11] MEDS: PANTOPRAZOLE 40 MG TAB PO SCH (10:48)
[2022-11-11] MEDS: CLOPIDOGREL BISULFATE 75 MG TAB PO SCH (10:48)
[2022-11-11 13:00] VITALS: BP 150/65
[2022-11-11 17:00] VITALS: BP 143/55
[2022-11-11] MEDS: cefTRIAXone 1GM/50ML D5W 50 ML IV SCH (21:52)
[2022-11-11 22:00] VITALS: BP 148/63
[2022-11-12 05:00] VITALS: BP 142/60
[2022-11-12] MEDS: ACCU-CHEK COMFORT CURVE STRIP VI SCH ×4 (06:12→21:40)
[2022-11-12] MEDS: InsuLIN REG 1unit/0.01ml Soln (100units/ml) SC SCH ×4 (06:16→21:40)
[2022-11-12] MEDS ORDERED: SODIUM CHL 0.9% 1000 ML BAG XX ONE (07:00)
[2022-11-12] MEDS: SEVELAMER 800 MG TAB PO SCH ×3 (08:33→17:58)
[2022-11-12 09:00] VITALS: BP 145/70
[2022-11-12] MEDS: CLOPIDOGREL BISULFATE 75 MG TAB PO SCH (09:57)
[2022-11-12] MEDS: PANTOPRAZOLE 40 MG TAB PO SCH (09:58)
[2022-11-12] MEDS: amLODIPine BESYLATE 5 MG TAB PO SCH (09:58)
[2022-11-12] MEDS: METOPROLOL SUCCINATE XL 50 MG TAB PO SCH (10:01)
[2022-11-12 13:00] VITALS: BP 117/72
[2022-11-12] MEDS ORDERED: LEVO250T69 PO (14:31)
[2022-11-12 17:00] VITALS: BP 127/67
[2022-11-12] MEDS ORDERED: VANCOMYCIN 1GM/250ML 250 ML IV ONE (18:00)
[2022-11-12] MEDS ORDERED: VANCOMYCIN 750mg/250ml 250 ML IV ONE (20:15)
[2022-11-12] MEDS: cefTRIAXone 1GM/50ML D5W 50 ML IV SCH (21:30)
[2022-11-12 22:00] VITALS: BP 136/44
[2022-11-13] MEDS: diphenhdrAMINE HCL 50 MG/1 ML VL IV PRN (04:22)
[2022-11-13 05:00] VITALS: BP 124/32
[2022-11-13] MEDS: ACCU-CHEK COMFORT CURVE STRIP VI SCH ×3 (06:14→18:08)
[2022-11-13] MEDS: InsuLIN REG 1unit/0.01ml Soln (100units/ml) SC SCH ×3 (06:16→17:00)
[2022-11-13] MEDS: PANTOPRAZOLE 40 MG TAB PO SCH (08:14)
[2022-11-13] MEDS: SEVELAMER 800 MG TAB PO SCH ×3 (08:15→18:12)
[2022-11-13 08:30] VITALS: BP 108/69
[2022-11-13 09:00] VITALS: BP 108/69
[2022-11-13] MEDS: amLODIPine BESYLATE 5 MG TAB PO SCH ×2 (10:00→18:07)
[2022-11-13] MEDS: METOPROLOL SUCCINATE XL 50 MG TAB PO SCH ×2 (10:00→18:08)
[2022-11-13 13:00] VITALS: BP 133/55
[2022-11-13 16:48] VITALS: BP 165/84
[2022-11-13 17:51] VITALS: BP 165/84
[2022-11-13] MEDS: CLOPIDOGREL BISULFATE 75 MG TAB PO SCH (18:08)
== END 2022-11-13 19:30 | disposition home health service (06) | DRG 720 ==
LOC: EDBD 20:26 → ER 20:26 → OVERFLOW 11-09 04:20 → WEST WING 11-09 17:51
PROVIDERS: ADMIT Nurse Practitioner; ATTEND Internal Medicine
PROC: 5A1D70Z Performance of Urinary Filtration, Intermittent, Less than 6 Hours Per Day (ICD-10-PCS; principal; 2022-11-10)
PROC: 5A1D70Z Performance of Urinary Filtration, Intermittent, Less than 6 Hours Per Day (ICD-10-PCS; 2022-11-12)
DX: A40.9 Streptococcal sepsis, unspecified (principal); G93.41 Metabolic encephalopathy; I13.2 Hypertensive heart and chronic kidney disease with heart failure and with stage 5 chronic kidney disease, or end stage renal disease; D69.6 Thrombocytopenia, unspecified; N18.6 End stage renal disease; E44.0 Moderate protein-calorie malnutrition; E11.22 Type 2 diabetes mellitus with diabetic chronic kidney disease; D63.1 Anemia in chronic kidney disease; K74.60 Unspecified cirrhosis of liver; I25.10 Atherosclerotic heart disease of native coronary artery without angina pectoris; M89.8X9 Other specified disorders of bone, unspecified site; Z79.4 Long term (current) use of insulin; Z99.2 Dependence on renal dialysis; Z91.041 Radiographic dye allergy status; I50.32 Chronic diastolic (congestive) heart failure; Z68.1 Body mass index [BMI] 19.9 or less, adult
CPT/HCPCS: 36415; 71045; 80048; 80053; 80202; 82140; 82962; 83605; 83880; 84484; 85007; 85018; 85025; 85027; 85610; 85730; 87040; 87077; 87186; 90935; 93005; 93306; 96365; 96366; 96375; G0378; J0696; J1815